=== PATIENT | female | born 1965 | race African-American/Black ===

== ENCOUNTER 2018-01-31 18:40 | Inpatient (IN) | payer MEDICAID ==
[~2018-01-31] VITALS: Ht 175.3 cm; Wt 148.3 kg
[2018-01-31 19:43] LABS: BASOPHILS % 1.4 % (0.0-2.0); EOSINOPHILS % 1.5 % (0.0-5.0); HEMOGLOBIN. 13.3 g/dL (12.0-16.0); LYMPHOCYTES % 26.7 % (20.0-50.0); MEAN CORPUSCULAR HEMOGLOBIN 30.9 pg (28.0-32.0); MEAN PLATELET VOLUME 7.5 fl (7.4-10.4); MONOCYTES % 6.3 % (2.0-8.0); NEUTROPHILS % 64.1 % (40.0-76.0); PLATELET 331 x1000/uL (130-400); RED CELL DISTRIBUTION WIDTH 14.5 % (11.6-14.6)
[2018-01-31 19:48] LABS: CHLORIDE 105 mEq/L (98-107); INR 0.9; PROTHROMBIN TIME 9.2 sec (9.1-11.1)
[2018-01-31 19:55] LABS: ETHANOL BLOOD < 10 mg/dL
[2018-01-31 20:58] LABS: CLARITY URINE CLEAR (CLEAR); COLOR URINE YELLOW (YELLOW); KETONES URINE NEGATIVE (NEGATIVE); LEUKOCYTE ESTERASE URINE NEGATIVE (NEGATIVE); NITRITE URINE NEGATIVE (NEGATIVE); OCCULT BLOOD URINE TRACE (NEGATIVE); PH URINE 5.5 (4.5-8.0); PROTEIN URINE NEGATIVE (NEGATIVE); SPECIFIC GRAVITY URINE 1.022 (1.005-1.030); UROBILINOGEN URINE 0.2 E.U./dL (0.2-1.0)
[2018-01-31 21:12] LABS: *AMPHETAMINES SCREEN URINE NEGATIVE (NEGATIVE); *BARBITURATES SCREEN URINE NEGATIVE (NEGATIVE); *BENZODIAZEPINES SCREEN URINE NEGATIVE (NEGATIVE); *COCAINE SCREEN URINE NEGATIVE (NEGATIVE); METHADONE URINE SCREEN NEGATIVE (NEGATIVE); OPIATES URINE SCREEN NEGATIVE (NEGATIVE)
[2018-01-31 21:13] LABS: CANNABINOID URINE SCREEN NEGATIVE (NEGATIVE); PHENCYCLIDINE URINE SCREEN NEGATIVE (NEGATIVE)
[2018-01-31 23:00] VITALS: BP 170/80
[2018-02-01] VITALS: BP 135/66
[2018-02-01] MEDS ORDERED: ONDANSETRON HCL 4MG/2ML INJ IV PRN
[2018-02-01] MEDS ORDERED: ACETAMINOPHEN 650MG/20.3ML UDC PO PRN
[2018-02-01] MEDS: AMLODIPINE 10MG TABLET PO SCH ×2 (00:21→11:46)
[2018-02-01] MEDS: HYDROCODONE/ACETAMINOPHEN 5/325MG TABLET PO PRN ×2 (00:21→04:22)
[2018-02-01 04:00] VITALS: BP 144/66
[2018-02-01 06:47] LABS: BASOPHILS % 0.7 % (0.0-2.0); EOSINOPHILS % 1.6 % (0.0-5.0); HEMATOCRIT. 38.4 % (36.0-48.0); HEMOGLOBIN. 12.9 g/dL (12.0-16.0); LYMPHOCYTES % 33.8 % (20.0-50.0); MEAN CORPUSCULAR HEMOGLOBIN 31.3 pg (28.0-32.0); MEAN CORPUSCULAR VOLUME 92.9 fL (81.0-99.0); MEAN PLATELET VOLUME 8.3 fl (7.4-10.4); MONOCYTES % 5.6 % (2.0-8.0); NEUTROPHILS % 58.3 % (40.0-76.0); PLATELET 269 x1000/uL (130-400); RED BLOOD CELL COUNT 4.13 mill/uL (4.2-5.4); RED CELL DISTRIBUTION WIDTH 14.3 % (11.6-14.6)
[2018-02-01 07:09] LABS: CHLORIDE 105 mEq/L (98-107)
[2018-02-01 08:00] VITALS: BP 142/83
[2018-02-01 12:00] VITALS: BP 179/85
[2018-02-01] MEDS: LOSARTAN POTASSIUM 50 MG TABLET PO SCH (13:05)
[2018-02-01] MEDS: CLOPIDOGREL 75MG TABLET PO SCH (13:05)
[2018-02-01] MEDS: MORPHINE SULFATE 4 MG/ML CPJ (NOT FOR IM USE) IV PRN ×2 (13:06→18:53)
[2018-02-01 16:00] VITALS: BP 148/86
[2018-02-01] MEDS: CYCLOBENZAPRINE 10MG TABLET PO SCH ×3 (16:08→22:00)
[2018-02-01] MEDS: GENTAMICIN 0.3% OPHTH DROPS 5ML LEFTEYE SCH ×3 (16:09→21:11)
[2018-02-01 20:00] VITALS: BP 174/90
[2018-02-01] MEDS ORDERED: CLONIDINE 0.1MG TABLET PO PRN (20:15)
[2018-02-01] MEDS: ATORVASTATIN CALCIUM 20MG TABLET PO SCH (21:10)
[2018-02-02] VITALS: BP 115/63
[2018-02-02] MEDS: GENTAMICIN 0.3% OPHTH DROPS 5ML LEFTEYE SCH ×6 (02:46→21:15)
[2018-02-02] MEDS: MORPHINE SULFATE 4 MG/ML CPJ (NOT FOR IM USE) IV PRN ×3 (02:55→21:14)
[2018-02-02 04:00] VITALS: BP 118/70
[2018-02-02] MEDS: CYCLOBENZAPRINE 10MG TABLET PO SCH ×3 (06:39→21:13)
[2018-02-02 08:00] VITALS: BP 114/80
[2018-02-02] MEDS: LOSARTAN POTASSIUM 50 MG TABLET PO SCH (08:28)
[2018-02-02] MEDS: CLOPIDOGREL 75MG TABLET PO SCH (08:28)
[2018-02-02] MEDS: AMLODIPINE 10MG TABLET PO SCH (08:28)
[2018-02-02 12:00] VITALS: BP 150/77
[2018-02-02 16:00] VITALS: BP 147/83
[2018-02-02 20:00] VITALS: BP 143/79
[2018-02-02] MEDS: ATORVASTATIN CALCIUM 20MG TABLET PO SCH (21:13)
[2018-02-03] VITALS: BP 158/63
[2018-02-03] MEDS: GENTAMICIN 0.3% OPHTH DROPS 5ML LEFTEYE SCH ×6 (02:25→20:49)
[2018-02-03] MEDS: MORPHINE SULFATE 4 MG/ML CPJ (NOT FOR IM USE) IV PRN ×5 (02:39→18:47)
[2018-02-03 04:00] VITALS: BP 137/81
[2018-02-03] MEDS: CYCLOBENZAPRINE 10MG TABLET PO SCH ×3 (05:37→20:49)
[2018-02-03 08:00] VITALS: BP 126/78
[2018-02-03] MEDS: CLOPIDOGREL 75MG TABLET PO SCH (10:17)
[2018-02-03] MEDS: LOSARTAN POTASSIUM 50 MG TABLET PO SCH (10:17)
[2018-02-03] MEDS: AMLODIPINE 10MG TABLET PO SCH (10:18)
[2018-02-03 12:00] VITALS: BP 130/76
[2018-02-03 16:00] VITALS: BP 137/78
[2018-02-03 20:00] VITALS: BP 132/59
[2018-02-03] MEDS: ATORVASTATIN CALCIUM 20MG TABLET PO SCH (20:49)
[2018-02-04] VITALS (7 sets, daily range): BP systolic 107–154; BP diastolic 49–95
[2018-02-04] MEDS: GENTAMICIN 0.3% OPHTH DROPS 5ML LEFTEYE SCH ×6 (02:00→21:12)
[2018-02-04] MEDS: MORPHINE SULFATE 4 MG/ML CPJ (NOT FOR IM USE) IV PRN ×5 (04:21→22:47)
[2018-02-04] MEDS: CYCLOBENZAPRINE 10MG TABLET PO SCH ×3 (06:06→21:12)
[2018-02-04] MEDS: CLOPIDOGREL 75MG TABLET PO SCH (09:03)
[2018-02-04] MEDS: AMLODIPINE 10MG TABLET PO SCH (09:04)
[2018-02-04] MEDS: LOSARTAN POTASSIUM 50 MG TABLET PO SCH (09:04)
[2018-02-04] MEDS: ATORVASTATIN CALCIUM 20MG TABLET PO SCH (21:12)
[2018-02-05] VITALS: BP 129/49
[2018-02-05] MEDS: GENTAMICIN 0.3% OPHTH DROPS 5ML LEFTEYE SCH ×3 (02:09→10:15)
[2018-02-05] MEDS: MORPHINE SULFATE 4 MG/ML CPJ (NOT FOR IM USE) IV PRN ×2 (03:11→08:34)
[2018-02-05 04:00] VITALS: BP 112/64
[2018-02-05] MEDS: CYCLOBENZAPRINE 10MG TABLET PO SCH (06:48)
[2018-02-05 08:00] VITALS: BP 143/76
[2018-02-05] MEDS: CLOPIDOGREL 75MG TABLET PO SCH (09:25)
[2018-02-05] MEDS: LOSARTAN POTASSIUM 50 MG TABLET PO SCH (09:25)
[2018-02-05] MEDS: AMLODIPINE 10MG TABLET PO SCH (09:25)
[2018-02-05 12:00] VITALS: BP 130/83
[2018-02-05 12:57] VITALS: BP 130/83
[2018-02-05] MEDS ORDERED: ATORVASTATIN CALCIUM 20MG TABLET PO SCH (21:00)
== END 2018-02-05 13:15 | disposition home or self-care (01) | DRG 45 ==
LOC: ER 18:40 → 5WST 20:09 → EDBEDREQTM 20:10 → EDBEDREQ 20:10 → EDBEDREQSVC 20:10 → ENRESERV 20:34
PROVIDERS: ADMIT Hospitalist; ATTEND Hospitalist
PROC: 4A00X4Z Measurement of Central Nervous Electrical Activity, External Approach (ICD-10-PCS; principal; 2018-02-03)
DX: I63.9 Cerebral infarction, unspecified (principal); E66.01 Morbid (severe) obesity due to excess calories; E78.5 Hyperlipidemia, unspecified; F17.210 Nicotine dependence, cigarettes, uncomplicated; I10 Essential (primary) hypertension; J45.909 Unspecified asthma, uncomplicated; E78.00 Pure hypercholesterolemia, unspecified; M54.5 Low back pain; F41.9 Anxiety disorder, unspecified; Z60.2 Problems related to living alone; R47.81 Slurred speech; R29.810 Facial weakness; Z68.42 Body mass index [BMI] 45.0-49.9, adult; Z90.49 Acquired absence of other specified parts of digestive tract; Z88.6 Allergy status to analgesic agent
CPT/HCPCS: 36415; 70450; 71045; 73560; 73610; 80053; 80305; 81003; 82962; 83721; 84484; 85025; 85610; 92610; 93005; 93880; 97110; 97116; 97162; 97166; 99285; G0482; J2270

== ENCOUNTER 2019-01-05 08:13 | Inpatient (IN) | payer MEDICAID ==
[~2019-01-05] VITALS: Ht 170.2 cm; Wt 152.4 kg
[2019-01-05] MEDS ORDERED: MORPHINE SULFATE 4 MG/ML CPJ (NOT FOR IM USE) IV STA (09:11)
[2019-01-05 09:49] LABS: BASOPHILS % 1.2 % (0.0-2.0); EOSINOPHILS % 2.8 % (0.0-5.0); HEMATOCRIT. 38.1 % (36.0-48.0); HEMOGLOBIN. 12.9 g/dL (12.0-16.0); LYMPHOCYTES % 22.6 % (20.0-50.0); MEAN CORPUSCULAR HEMOGLOBIN 31.3 pg (28.0-32.0); MEAN CORPUSCULAR VOLUME 92.6 fL (81.0-99.0); MEAN PLATELET VOLUME 7.5 fl (7.4-10.4); MONOCYTES % 5.3 % (2.0-8.0); NEUTROPHILS % 68.1 % (40.0-76.0); PLATELET 301 x1000/uL (130-400); RED BLOOD CELL COUNT 4.12 mill/uL (4.2-5.4)
[2019-01-05 09:53] LABS: CHLORIDE 105 mEq/L (98-107)
[2019-01-05] MEDS ORDERED: DIPHENHYDRAMINE 50MG/ML VIAL IV ONE (10:15)
[2019-01-05] MEDS ORDERED: LORAZEPAM 0.5MG TABLET PO PRN (22:00)
[2019-01-05] MEDS ORDERED: ACETAMINOPHEN 325MG TABLET PO PRN (22:00)
[2019-01-05] MEDS ORDERED: CYCLOBENZAPRINE 10MG TABLET PO PRN (22:00)
[2019-01-05] MEDS ORDERED: ONDANSETRON HCL 4MG/2ML INJ IV PRN (22:00)
[2019-01-05] MEDS ORDERED: IPRATROPIUM/ALBUTEROL 0.5-3(2.5)MG/3ML NEB INH PRN (22:00)
[2019-01-05] MEDS ORDERED: DOCUSATE SODIUM 100MG CAPSULE PO PRN (22:00)
[2019-01-05 22:05] VITALS: BP 149/92
[2019-01-05] MEDS ORDERED: ATORVASTATIN CALCIUM 20MG TABLET PO SCH (23:00)
[2019-01-05] MEDS: CLOPIDOGREL 75MG TABLET PO SCH (23:40)
[2019-01-05] MEDS: HYDROCODONE/ACETAMINOPHEN 5/325MG TABLET PO PRN (23:41)
[2019-01-05] MEDS: AMLODIPINE 5MG TABLET PO SCH (23:41)
[2019-01-06 00:09] VITALS: BP 149/92
[2019-01-06 01:45] LABS: CREATINE KINASE 84 IU/L (26-192)
[2019-01-06 01:47] LABS: CREATINE KINASE MB FRACTION < 1.0 ng/mL (0.5-3.6)
[2019-01-06 04:00] VITALS: BP 132/77
[2019-01-06 08:00] VITALS: BP 174/94
[2019-01-06] MEDS ORDERED: DIPHENHYDRAMINE 50MG/ML VIAL IV SCH (08:30)
[2019-01-06] MEDS: CLOPIDOGREL 75MG TABLET PO SCH (08:42)
[2019-01-06] MEDS: AMLODIPINE 5MG TABLET PO SCH (08:43)
[2019-01-06] MEDS: HYDROCODONE/ACETAMINOPHEN 5/325MG TABLET PO PRN (08:44)
[2019-01-06] MEDS ORDERED: REGADENOSON 0.4 MG/5 ML IV SCH (09:15)
[2019-01-06] MEDS ORDERED: MORPHINE SULFATE 2 MG/ML CPJ (NOT FOR IM USE) IV PRN (10:15)
[2019-01-06] MEDS ORDERED: DIPHENHYDRAMINE 50MG/ML VIAL IV PRN (10:15)
[2019-01-06] MEDS ORDERED: DIAZEPAM 5 MG TABLET PO PRN (10:15)
[2019-01-06] MEDS ORDERED: SULFAMETHOXAZOLE/TRIMETHOPRIM 800/160MG TABLET PO SCH (10:30)
[2019-01-06 10:43] LABS: BASOPHILS % 0.3 % (0.0-2.0); EOSINOPHILS % 2.6 % (0.0-5.0); HEMATOCRIT. 37.4 % (36.0-48.0); HEMOGLOBIN. 12.5 g/dL (12.0-16.0); LYMPHOCYTES % 23.1 % (20.0-50.0); MEAN CORPUSCULAR HEMOGLOBIN 30.7 pg (28.0-32.0); MEAN CORPUSCULAR VOLUME 91.7 fL (81.0-99.0); MEAN PLATELET VOLUME 7.4 fl (7.4-10.4); MONOCYTES % 4.3 % (2.0-8.0); NEUTROPHILS % 69.7 % (40.0-76.0); PLATELET 335 x1000/uL (130-400); RED BLOOD CELL COUNT 4.08 mill/uL (4.2-5.4)
[2019-01-06 10:56] LABS: CHLORIDE 104 mEq/L (98-107)
[2019-01-06] MEDS ORDERED: SULF1TAB44 PO (11:28)
[2019-01-06] MEDS ORDERED: MELA2.5T MT (11:28)
[2019-01-06] MEDS ORDERED: ATOR20TA PO (11:28)
[2019-01-06] MEDS ORDERED: CLOP75TA15 PO (11:28)
[2019-01-06] MEDS ORDERED: HYDR453.3 TOP (11:28)
[2019-01-06] MEDS ORDERED: AMLO5TAB88 PO (11:28)
[2019-01-06] MEDS ORDERED: DIAZ5TAB4 MT (11:28)
[2019-01-06] MEDS ORDERED: DIPHENHYDRAMINE HCL/ZINC ACET 28 GM CREAM TOP PRN (12:00)
[2019-01-06] MEDS ORDERED: REGADENOSON 0.4 MG/5 ML IV ONE (13:50)
[2019-01-06 13:54] VITALS: BP 139/86
[2019-01-06] MEDS ORDERED: HYDROCORTISONE 2.5% CREAM 20GM TOP SCH (14:00)
== END 2019-01-06 16:38 | disposition home or self-care (01) | DRG 199 ==
LOC: ER 08:13 → 8WST 11:22 → ENRESERV 21:05
PROVIDERS: ADMIT Internal Medicine; ATTEND Internal Medicine
DX: I16.0 Hypertensive urgency (principal); I69.359 Hemiplegia and hemiparesis following cerebral infarction affecting unspecified side; R07.89 Other chest pain; J45.909 Unspecified asthma, uncomplicated; L02.92 Furuncle, unspecified; I10 Essential (primary) hypertension; G89.29 Other chronic pain; E78.5 Hyperlipidemia, unspecified; F14.10 Cocaine abuse, uncomplicated; E66.9 Obesity, unspecified; F41.9 Anxiety disorder, unspecified; M54.5 Low back pain; Z83.3 Family history of diabetes mellitus; Z90.49 Acquired absence of other specified parts of digestive tract
CPT/HCPCS: 36415; 71045; 78452; 80048; 82550; 82553; 83036; 83880; 84484; 93005; 93017; 93970; 99285; A9500; J1200; J2270; J2785

== ENCOUNTER → 2019-06-23 | Day surgery (SDC) | payer MEDICAID ==
[~2019-06-23] VITALS: Ht 175.3 cm; Wt 149.7 kg
[~2019-06-23] MED LIST: AMLO5TAB88 PO; ATOR20TA PO; CLOP75TA15 PO; DIAZ5TAB4 MT; HYDR453.3 TOP; LACTATED RINGERS 1,000 ML IV SCH; MELA2.5T MT; SULF1TAB44 PO
[2019-06-23 09:15] LABS: BASOPHILS % 0.9 % (0.0-2.0); EOSINOPHILS % 2.2 % (0.0-5.0); HEMATOCRIT. 41.1 % (36.0-48.0); HEMOGLOBIN. 13.5 g/dL (12.0-16.0); LYMPHOCYTES % 26.4 % (20.0-50.0); MEAN CORPUSCULAR HEMOGLOBIN 30.4 pg (28.0-32.0); MEAN CORPUSCULAR VOLUME 92.6 fL (81.0-99.0); NEUTROPHILS % 64.5 % (40.0-76.0); PLATELET 318 x1000/uL (130-400); RED BLOOD CELL COUNT 4.43 mill/uL (4.2-5.4); RED CELL DISTRIBUTION WIDTH 14.3 % (11.6-14.6)
[2019-06-23 09:24] LABS: CHLORIDE 106 mEq/L (98-107)
[2019-06-23 09:28] LABS: INR 0.9; PARTIAL THROMBOPLASTIN TIME 28.2 sec (23.4-31.0); PROTHROMBIN TIME 9.8 sec (9.6-11.0)
[2019-06-23 09:32] LABS: *AMPHETAMINES SCREEN URINE NEGATIVE (NEGATIVE); *BARBITURATES SCREEN URINE NEGATIVE (NEGATIVE); *BENZODIAZEPINES SCREEN URINE NEGATIVE (NEGATIVE); *COCAINE SCREEN URINE PRESUMTIVE POSITIVE (NEGATIVE); METHADONE URINE SCREEN NEGATIVE (NEGATIVE); OPIATES URINE SCREEN NEGATIVE (NEGATIVE)
[2019-06-23 09:33] LABS: CANNABINOID URINE SCREEN NEGATIVE (NEGATIVE); PHENCYCLIDINE URINE SCREEN NEGATIVE (NEGATIVE)
== END | disposition home or self-care (01) ==
LOC: OR 07:46
PROVIDERS: ATTEND Internal Medicine Gastroenterology
DX: Z53.8 Procedure and treatment not carried out for other reasons (principal); Z79.899 Other long term (current) drug therapy; Z82.49 Family history of ischemic heart disease and other diseases of the circulatory system; Z83.3 Family history of diabetes mellitus
CPT/HCPCS: 36415; 80048; 80305; 85025; 93005